=== PATIENT | male | born 1945 | race Asian ===

== ENCOUNTER 2019-10-22 14:37 | Emergency (ER) | payer MEDICARE, MEDICAID ==
[~2019-10-22] VITALS: Ht 170.2 cm; Wt 90.5 kg
[~2019-10-22 14:37] MED LIST: TNFMISC
[2019-10-22] MEDS ORDERED: ATOR40TA28 PO (14:54)
[2019-10-22] MEDS ORDERED: METF-960 PO (14:54)
[2019-10-22] MEDS ORDERED: EMPA25TA PO (14:54)
[2019-10-22] MEDS ORDERED: IRBE150T51 PO (14:54)
[2019-10-22] MEDS ORDERED: OLOP2.5D OP (14:54)
[2019-10-22] MEDS ORDERED: CARV12 PO (14:54)
[2019-10-22] MEDS ORDERED: FAMOTIDINE 10 MG/ML 2 ML VIAL IVP ONE (15:00)
[2019-10-22] MEDS ORDERED: ONDANSETRON HCL 4 MG/2 ML VIAL IVP ONE (15:00)
[2019-10-22] MEDS ORDERED: PB/HYOSCY/ATR/SCOP/LIDO/MAALOX 55 ML BOTTLE PO ONE (15:00)
[2019-10-22 15:06] LABS: GLUCOSE,POINT OF CARE 154 MG/DL (70-110)
[2019-10-22 15:31] LABS: BASOPHILS % (AUTO) 0.3 % (0.0-2.0); EOSINOPHILS % (AUTO) 0.3 % (1.0-6.0); HEMATOCRIT 47.7 % (41-53); HEMOGLOBIN 16.5 g/dL (13.5-17.5); LYMPHOCYTES # (AUTO) 0.8 K/uL (1.0-4.8); LYMPHOCYTES % (AUTO) 8.4 % (22.0-44.0); MEAN CORPUSCULAR HEMOGLOBIN 32.5 pg (26.0-34.0); MEAN CORPUSCULAR HGB CONC 34.6 G/dL (31.0-37.0); MEAN CORPUSCULAR VOLUME 94 fL (80-100); MONOCYTES # (AUTO) 0.3 K/uL (0.1-1.0); NEUTROPHILS # (AUTO) 8.5 K/uL (1.8-7.7); PLATELET COUNT (AUTO) 149 K/uL (150-450); RED BLOOD CELL COUNT(AUTO) 5.09 MIL/uL (4.50-5.90); RED CELL DISTRIBUTION WIDTH 13.8 % (11.5-14.5)
[2019-10-22] MEDS: SODIUM CHLORIDE 0.9% 1,000 ML IV ONE ×2 (15:33→16:33)
[2019-10-22 15:43] LABS: ANION GAP 13 mmol/L (8-16); CALCIUM, TOTAL 9.1 mg/dL (8.8-10.5); CARBON DIOXIDE 28 mmol/L (22-29); CHLORIDE 105 mmol/L (98-107); CREATININE 0.92 mg/dL (0.60-1.30); GLUCOSE,RANDOM 196 mg/dL (70-110); POTASSIUM 3.9 mmol/L (3.5-5.1); SODIUM SERUM 146 mmol/L (136-145); UREA NITROGEN, BLOOD 21 mg/dL (7-18)
[2019-10-22 15:45] LABS: GLOMERULAR FILTR. RATE CALC > 60 mL/min (>60)
[2019-10-22] MEDS ORDERED: IOVERSOL 320 MG/ML 100 ML VIAL ONE (15:51)
[2019-10-22] MEDS ORDERED: SODIUM CHLORIDE 0.9% 100 ML ONE (15:51)
[2019-10-22 15:59] LABS: ALANINE AMINOTRANSFERASE 71 U/L (12-78); ALBUMIN 4.2 g/dL (3.4-5.0); ALKALINE PHOSPHATASE 74 U/L (46-116); ASPARTATE AMINOTRANSFERASE 38 U/L (15-37); BILIRUBIN,TOTAL 1.2 mg/dL (0.1-1.0); LIPASE 140 U/L (73-393); TOTAL PROTEIN, SERUM 8.2 g/dL (6.4-8.2)
[2019-10-22 16:02] LABS: LACTIC ACID 2.1 mmol/L (0.4-2.0)
[2019-10-22] MEDS ORDERED: CefTRIAXone 1 GM/DEXTROSE 50 ML IV ONE (16:15)
[2019-10-22] MEDS ORDERED: MetroNIDAZOLE 500 MG/NACL 100 ML IV ONE (16:15)
[2019-10-22] MEDS ORDERED: SODIUM CHLORIDE 0.9% 2,700 ML IV ONE (16:18)
[2019-10-22 16:23] LABS: APPEARANCE,URINE CLEAR (CLEAR); BILIRUBIN,URINE NEGATIVE (NEGATIVE); GLUCOSE, URINE (UA) >=1000 mg/dL (NEGATIVE); KETONES,URINE 40 mg/dL (NEGATIVE); LEUKOCYTE ESTERASE ,URINE NEGATIVE (NEGATIVE); NITRATE,URINE NEGATIVE (NEGATIVE); OCCULT BLOOD,URINE NEGATIVE (NEGATIVE); PROTEIN,URINE NEGATIVE (NEGATIVE)
[2019-10-22 16:26] LABS: INFLUENZA TYPE A NEGATIVE FOR TYPE A (NEGATIVE); INFLUENZA TYPE B NEGATIVE FOR TYPE B (NEGATIVE)
[2019-10-22 16:35] LABS: BACTERIA,URINE Rare /HPF (None Seen); RBC,URINE 0-2 /HPF (0-2); SQUAMOUS EPITHELIAL CELL,UR Rare /LPF (None Seen); WBC,URINE 0-2 /HPF (0-5)
[2019-10-22 19:54] VITALS: BP 135/75
== END 2019-10-22 20:26 | disposition home or self-care (01) ==
LOC: EMS 14:39
DX: R11.2 Nausea with vomiting, unspecified (principal); R74.0 Nonspecific elevation of levels of transaminase and lactic acid dehydrogenase [LDH]; R10.33 Periumbilical pain; E11.9 Type 2 diabetes mellitus without complications; I10 Essential (primary) hypertension; Z79.84 Long term (current) use of oral hypoglycemic drugs; Z79.899 Other long term (current) drug therapy
CPT/HCPCS: 36415; 74177; 80053; 81001; 82962; 83605; 83690; 83880; 84484; 85025; 87040; 87804; 93005; 96361; 96365; 96367; 96375; 99284; J0696; J2405; J3490 ×2; J7030; J7050; Q9967

== ENCOUNTER 2020-08-07 23:47 | Emergency (ER) | payer MEDICARE, OTHER ==
[~2020-08-07] VITALS: Ht 170.2 cm; Wt 90.9 kg
[~2020-08-07 23:47] MED LIST changes: +ATOR40TA28 PO; +CARV12 PO; +EMPA25TA PO; +IRBE150T51 PO; +METF-960 PO; +OLOP2.5D12 OP; -TNFMISC
[2020-08-08] MEDS ORDERED: KETOROLAC TROMETHAMINE 30 MG/ML VIAL IM ONE (01:00)
[2020-08-08 02:25] VITALS: BP 123/70
== END 2020-08-08 02:36 | disposition home or self-care (01) ==
LOC: EMS 23:48
DX: S43.102A Unspecified dislocation of left acromioclavicular joint, initial encounter (principal); E11.9 Type 2 diabetes mellitus without complications; I10 Essential (primary) hypertension; W19.XXXA Unspecified fall, initial encounter; Y93.89 Activity, other specified; Y92.89 Other specified places as the place of occurrence of the external cause; Y99.8 Other external cause status
CPT/HCPCS: 73030; 73050; 82962; 96372; 99284; J1885; 29240